=== PATIENT | female | born 1995 | race Hispanic/Latino ===

== ENCOUNTER 2018-10-20 19:28 | Emergency (ER) | payer SELFPAY ==
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
== END 2018-10-20 22:27 | disposition home or self-care (01) ==
LOC: ER 19:28
DX: M54.5 Low back pain (principal); V49.40XA Driver injured in collision with unspecified motor vehicles in traffic accident, initial encounter; Z72.0 Tobacco use; Z88.0 Allergy status to penicillin
CPT/HCPCS: 72100; 99283

== ENCOUNTER 2019-05-02 10:57 | Emergency (ER) | payer SELFPAY ==
[2019-05-02 12:11] LABS: Absolute Lymphocytes (CBC) 1.6 K/uL (0.7-4.9); Absolute Monocytes 0.4 K/uL (0.1-1.3); Absolute Neutrophil 7.9 K/uL (1.8-8.0); Basophils % 0.6 % (0-1.3); Eosinophils % 0.8 % (0-4.4); Hematocrit 41.3 % (36.0-45.0); Lymphocytes % 15.8 % (15.3-44.8); MPV 8.7 fL (7.6-11.3); Monocytes % 4.2 % (3.3-12.3); RBC Red Blood Cell Count 4.66 M/uL (3.86-4.86)
[2019-05-02 12:26] LABS: Urine Blood 3+ (NEG); Urine Glucose NEGATIVE (NEG); Urine Protein 2+ (NEG); Urine Specific Gravity 1.015 (1.005-1.030); Urine pH 7.5 (5.0-7.0)
[2019-05-02 12:36] LABS: BUN Blood Urea Nitrogen 5 mg/dL (7-18); Bicarbonate 22 mmol/L (21-32); Glucose Level 82 mg/dL (74-106); HCG, Quantitative 46485 mIU/mL (1-3); Potassium 4.1 mmol/L (3.5-5.1); Sodium Level 136 mmol/L (136-145)
--- NOTE | 2019-05-02 13:19 | RAD REPORT ---
EXAM DESCRIPTION: US - Transvaginal OB - 05/02/2019 12:49 pm CLINICAL HISTORY: with vaginal bleeding COMPARISON: None. FINDINGS: The uterus measures 10 x 8 x 9 centimeters. Gestational sac is present within the endomet rium. Within this is pole with a crown rump length 5 centimeters. Cardiac activity 160 beats pe r minute. The gestational sac occupies the uterine fundus and lower uterine segment. The pole i s predominantly within the lower uterine segment. . 3 centimeter heterogeneous structure is present along the left lateral uterine wall. Ovaries are normal in size and echotexture. Right and left adnexa unremarkable. No significant free fluid IMPRESSION: Single live intrauterine with an estimated gestational age 11 weeks 5 days CHRISTOS 11/16/2019. 3 centimeter heterogeneous structure along the left lateral uterine wall may represent a fibroid or b lood. This could be monitored with a subsequent ultrasound in a few weeks.
--- NOTE | 2019-05-02 13:28 | ER ---
Nurse's Notes [facility] Name: Raeann Mesa Age: 23 yrs Sex: Female : 1995 Arrival Date: 05/02/2019 Time: 11:00 Bed 14 Private MD: out of town, doctor Diagnosis: related conditions, unspecified, first trimester;11 weeks gestation of ;Threatened Presentation: 05/02 11:01 Presenting complaint: Patient states: LMP- 12/20/18; i started vaginal bleeding since hj Tuesday after my transvaginal US from my OB in [place]; today, i noticed a blood clot and the bleeding is abdulkadir heavy, i feel like a gas type pain in my abdomen; denies N/V;. Transition of care: patient was not received from another setting of care. Onset of symptoms was May 02, 2019. Risk Assessment: Do you want to hurt yourself or someone else? Patient reports no desire to harm self or others. Initial Sepsis Screen: Does the patient meet any 2 criteria? No. Patient's initial sepsis screen is negative. Does the patient have a suspected source of infection? No. Patient's initial sepsis screen is negative. Care prior to arrival: None. 11:01 Method Of Arrival: Ambulatory 11:01 Acuity: SHANNON 3 RECRUITMENT COORDINATOR: 11:04 LMP 12/20/2018 11:52 1, LMP 12/22/2018, Verified, EDC 09/28/2019, Gestational age from LMP: snw 18 weeks 5 days Historical: - Allergies: 11:03 PENICILLINS; hj - PMHx: 11:03 None; hj - PSHx: 11:03 None; hj - Immunization history:: Adult Immunizations unknown. - Social history:: Smoking status: Patient/guardian denies using tobacco. - Ebola Screening: : No symptoms or risks identified at this time. Screenin:30 Abuse screen: Denies threats or abuse. Denies injuries from another. Nutritional ph screening: No deficits noted. Tuberculosis screening: No symptoms or risk factors identified. Fall Risk None identified. Assessment: 11:30 General: Appears in no apparent distress. comfortable, well groomed, Behavior is calm, ph cooperative, appropriate for age. Pain: Complains of pain in suprapubic area. Neuro: Level of Consciousness is awake, alert, obeys commands, Oriented to person, place, time, situation. Cardiovascular: Capillary refill < 3 seconds in bilateral Patient's skin is warm and dry. Respiratory: Airway is patent Respiratory pattern is regular, symmetrical. GI: Abdomen is round non-distended. : Reports pain in suprapubic area vaginal bleeding that is with clots, moderate flow. Derm: Skin is intact, is healthy with good turgor, Skin is pink, warm \T\ dry. Musculoskeletal: Circulation, motion, and sensation intact. Range of motion: intact in all extremities. 12:30 Reassessment: Pt taken to US via wheelchair. ph Vital Signs: 11:04 BP 129 / 83; Pulse 83; Resp 16; Temp 98.8(O); Pulse Ox 98% on R/A; Weight 79.83 kg; hj Height 5 ft. 6 in. (167.64 cm); Pain 0/10; 12:00 BP 118 / 76; Pulse 85; Resp 16; Pulse Ox 99% on R/A; ph 13:00 BP 122 / 81; Pulse 86; Resp 18; Temp 97.2(TE); Pulse Ox 100% on R/A; ph 11:04 Body Mass Index 28.41 (79.83 kg, 167.64 cm) ED Course: 11:00 Patient arrived in ED. mr 11:00 out of town, doctor is Private Physician. mr 11:03 Triage completed. hj 11:04 Arm band placed on right wrist. hj 11:08 Jackelin Caal, DANIEL is Primary Nurse. ph 11:09 Tory Hernandez FNP-C is [facility]. snw 11:09 Chris Schultz MD is Attending Physician. snw 11:30 Patient has correct armband on for positive identification. Placed in gown. Bed in low ph position. Call light in reach. Side rails up X 1. Pulse ox on. NIBP on. Door closed. Noise minimized. Warm blanket given. Pillow given. 11:32 Initial lab(s) drawn, by me, sent to lab. Inserted saline lock: 20 gauge in left dh3 antecubital area, using aseptic technique. Blood collected. 11:40 Urine collected: clean catch specimen, blood tinged. [facility] 11:44 Radiology exam delayed due to lab results not completed at this time. aa4 12:50 Transvaginal OB In Process Unspecified. EDMS 13:35 Repeat lab(s) drawn. by me, sent to lab. Second ABO/Rh verification bloodsample. jp3 13:48 IV discontinued, intact, bleeding controlled, No redness/swelling at site. Pressure aj dressing applied. 13:48 No provider procedures requiring assistance completed. ph Administered Medications: No medications were administered Outcome: 13:27 Discharge ordered by . naga 13:48 Discharged to home ambulatory. aj 13:48 Condition: good 13:48 Discharge instructions given to patient, family, Instructed on discharge instructions, follow up and referral plans. medication usage, Demonstrated understanding of instructions, follow-up care, medications, Prescriptions given X 1. 13:48 Patient left the ED. [place] Signatures: Dispatcher [employer] EDQuita Prasad, RN RN Tory Ocampo, SALES SERVICE SUPERVISOR-C SALES SERVICE SUPERVISOR-Csnw Kami ParedesQuita harrell aa4 aJckelin Caal, RN RN Jose Luis Jimenez, RN RN Marie Melendrez 3 Tree Andrea jp3 Corrections: (The following items were deleted from the chart) 11:06 11:01 Presenting complaint: Patient states: LMP- 12/20/18; i started vaginal bleeding hj since Tuesday after my US; today, i noticed a blood clot, i feel like a gas type pain in my abdomen; denies N/V; hj 11:11 11:01 Presenting complaint: Patient states: LMP- 12/20/18; i started vaginal bleeding hj since Tuesday after my US; today, i noticed a blood clot and the bleeding is abdulkadir heavy, i feel like a gas type pain in my abdomen; denies N/V; hj
--- NOTE | 2019-05-02 13:29 | EDPHYS ---
Physician Documentation [facility] Name: Raeann Mesa Age: 23 yrs Sex: Female : 1995 Arrival Date: 05/02/2019 Time: 11:00 Bed 14 Private MD: out of town, doctor ED Physician Chris Schultz HPI: 05/02 11:52 This 23 yrs old Female presents to ER via Ambulatory with complaints of snw Vaginal Bleeding, + Preg <12wks. 11:52 The patient presents with vaginal bleeding that is spotting, with clots. Onset: The snw symptoms/episode began/occurred suddenly, 3 day(s) ago, and became worse this morning, and became persistent. Modifying factors: The symptoms are alleviated by nothing. Associated signs and symptoms: The patient has no apparent associated signs or symptoms. Severity of symptoms: At their worst the symptoms were mild. The patient has not experienced similar symptoms in the past. The patient has been recently seen by a physician: an shot man specialist, at a clinic, 3 day(s) ago, pt has appt with Efficiency Manager, had transvag US, all looked well, left office and had vaginal bleeding, returned to office and had repeat transvag US. Bleeding continued, pt on bedrest, bleeding slowed to spotting. Today with large blood clot post waking. , 11 wks. 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 - Social history:: Smoking status: Patient/guardian denies using tobacco. - Ebola Screening: : No symptoms or risks identified at this time. ROS: 11:39 Constitutional: Negative for fever, chills, and weight loss, Eyes: Negative for injury, snw pain, redness, and discharge, ENT: Negative for injury, pain, and discharge, Neck: Negative for injury, pain, and swelling, Cardiovascular: Negative for chest pain, palpitations, and edema, Respiratory: Negative for shortness of breath, cough, wheezing, and pleuritic chest pain, Abdomen/GI: Negative for abdominal pain, nausea, vomiting, diarrhea, and constipation, Back: Negative for injury and pain, MS/Extremity: Negative for injury and deformity, Skin: Negative for injury, rash, and discoloration, Neuro: Negative for headache, weakness, numbness, tingling, and seizure. 11:39 : Positive for small amounts, vaginal bleeding. Exam: 11:39 Constitutional: This is a well developed, well nourished patient who is awake, alert, snw and in no acute distress. Head/Face: Normocephalic, atraumatic. Eyes: Pupils equal round and reactive to light, extra-ocular motions intact. Lids and lashes normal. Conjunctiva and sclera are non-icteric and not injected. Cornea within normal limits. Periorbital areas with no swelling, redness, or edema. ENT: Nares patent. No nasal discharge, no septal abnormalities noted. Tympanic membranes are normal and external auditory canals are clear. Oropharynx with no redness, swelling, or masses, exudates, or evidence of obstruction, uvula midline. Mucous membranes moist. Neck: Trachea midline, no thyromegaly or masses palpated, and no cervical lymphadenopathy. Supple, full range of motion without nuchal rigidity, or vertebral point tenderness. No Meningismus. Chest/axilla: Normal chest wall appearance and motion. Nontender with no deformity. No lesions are appreciated. Cardiovascular: Regular rate and rhythm with a normal S1 and S2. No gallops, murmurs, or rubs. Normal PMI, no JVD. No pulse deficits. Respiratory: Lungs have equal breath sounds bilaterally, clear to auscultation and percussion. No rales, rhonchi or wheezes noted. No increased work of breathing, no retractions or nasal flaring. Abdomen/GI: Soft, non-tender, with normal bowel sounds. No distension or tympany. No guarding or rebound. No evidence of tenderness throughout. Back: No spinal tenderness. No costovertebral tenderness. Full range of motion. Skin: Warm, dry with normal turgor. Normal color with no rashes, no lesions, and no evidence of cellulitis. MS/ Extremity: Pulses equal, no cyanosis. Neurovascular intact. Full, normal range of motion. Neuro: Awake and alert, GCS 15, oriented to person, place, time, and situation. Cranial nerves II-XII grossly intact. Motor strength 5/5 in all extremities. Sensory grossly intact. Cerebellar exam normal. Normal gait. Vital Signs: 11:04 BP 129 / 83; Pulse 83; Resp 16; Temp 98.8(O); Pulse Ox 98% on R/A; Weight 79.83 kg; hj Height 5 ft. 6 in. (167.64 cm); Pain 0/10; 12:00 BP 118 / 76; Pulse 85; Resp 16; Pulse Ox 99% on R/A; ph 13:00 BP 122 / 81; Pulse 86; Resp 18; Temp 97.2(TE); Pulse Ox 100% on R/A; ph 11:04 Body Mass Index 28.41 (79.83 kg, 167.64 cm) hj MDM: 11:09 Patient medically screened. snw 13:40 Data reviewed: vital signs, nurses notes. Data interpreted: Pulse oximetry: on room air snw is 98 %. Interpretation: normal. Counseling: I had a detailed discussion with the patient and/or guardian regarding: the historical points, exam findings, and any diagnostic results supporting the discharge/admit diagnosis, lab results, radiology results, the need for outpatient follow up, to return to the emergency department if symptoms worsen or persist or if there are any questions or concerns that arise at home. Special discussion: Based on the history and exam findings, there is no indication for further emergent testing or inpatient evaluation. I discussed with the patient/guardian the need to see the OB Gyne specialist for further evaluation of the symptoms. 05/02 11:10 Order name: Quantitative Hcg; Complete Time: 12:41 snw 05/02 11:10 Order name: Abo/rh Typing; Complete Time: 12:32 snw 05/02 11:10 Order name: Basic Metabolic Panel; Complete Time: 12:41 snw 05/02 11:10 Order name: CBC with Diff; Complete Time: 12:26 snw 05/02 11:56 Order name: Urine Culture dh3 05/02 12:02 Order name: Urine Dipstick--Ancillary (enter results); Complete Time: 12:30 bd 05/02 11:06 Order name: Urine Test (obtain specimen); Complete Time: 11:58 05/02 11:10 Order name: IV Saline Lock; Complete Time: 11:33 snw 05/02 11:10 Order name: Labs collected and sent; Complete Time: 11:33 snw 05/02 11:10 Order name: NPO; Complete Time: 11:33 snw 05/02 12:02 Order name: Urine --Ancillary (enter results); Complete Time: 12:30 bd 05/02 12:50 Order name: Transvaginal OB; Complete Time: 13:24 EDMN 05/02 11:10 Order name: Urine Dipstick-Ancillary (obtain specimen); Complete Time: 11:58 snw Administered Medications: No medications were administered Disposition: 15:51 Co-signature as Attending Physician, Chris Schultz MD. rn Disposition: 05/02/19 13:27 Discharged to Home. Impression: related conditions, unspecified, first trimester, 11 weeks gestation of , Threatened . - Condition is Stable. - Discharge Instructions: Threatened Miscarriage, Vaginal Bleeding During , First Trimester, First Trimester of , Pelvic Rest. - Prescriptions for Vitamin 27- 0.8 mg Oral Tablet - take 1 tablet by ORAL route once daily; 60 tablet. - Medication Reconciliation Form, Thank You Letter, Antibiotic Education, Prescription Opioid Use form. - Follow up: Private Physician; When: 5 - 6 days; Reason: Recheck today's complaints, Continuance of care, Re-evaluation by your physician. Follow up: Emergency Department; When: As needed; Reason: Worsening of condition. Signatures: Dispatcher [employer] [place] Pierre RN RN aj Therrien, Shelly, BUSINESS OBJECTS ARCHITECT-C BUSINESS OBJECTS ARCHITECT-Csnw Chris Schultz MD MD rn Hall, Patricia, RN RN ph Joaquin, Henry RN DANIEL wei Corrections: (The following items were deleted from the chart) 11:58 11:06 Urine Dipstick-Ancillary ordered. [facility] 12:50 11:28 OB Limited+US.RAD.BRZ ordered. [facility] 13:48 13:27 05/02/2019 13:27 Discharged to Home. Impression: related conditions, aj unspecified, first trimester; 11 weeks gestation of ; Threatened . Condition is Stable. Forms are Medication Reconciliation Form, Thank You Letter, Antibiotic Education, Prescription Opioid Use. Follow up: Private Physician; When: 5 - 6 days; Reason: Recheck today's complaints, Continuance of care, Re-evaluation by your physician. Follow up: Emergency Department; When: As needed; Reason: Worsening of condition. naga
== END 2019-05-02 13:48 | disposition home or self-care (01) ==
LOC: ER 10:57
DX: O20.0 Threatened abortion (principal); Z3A.18 18 weeks gestation of pregnancy; Z88.0 Allergy status to penicillin
CPT/HCPCS: 36415; 76817; 80048; 81003; 81025; 84702; 85025; 86900; 86901; 87086; 87088; 99284

== ENCOUNTER 2019-06-29 16:28 | Inpatient (IN) | payer SELFPAY ==
[2019-06-29 17:15] LABS: Urine Blood 3+ (NEG); Urine Glucose NEGATIVE (NEG); Urine Protein 3+ (NEG); Urine Specific Gravity 1.015 (1.005-1.030)
[2019-06-29 17:34] LABS: Absolute Lymphocytes (CBC) 1.9 K/uL (0.7-4.9); Basophils % 0.3 % (0-1.3); Hematocrit 38.6 % (36.0-45.0); Lymphocytes % 16.6 % (15.3-44.8); MPV 8.4 fL (7.6-11.3)
[2019-06-29 18:07] LABS: BUN Blood Urea Nitrogen 8 mg/dL (7-18); Bicarbonate 23 mmol/L (21-32); Glucose Level 96 mg/dL (74-106); HCG, Quantitative 4550 mIU/mL (1-3); Potassium 3.6 mmol/L (3.5-5.1); Sodium Level 140 mmol/L (136-145)
--- NOTE | 2019-06-29 18:28 | RAD REPORT ---
EXAM DESCRIPTION: US - OB Limited - 06/29/2019 5:51 pm CLINICAL HISTORY: , amniotic fluid leak COMPARISON: None. FINDINGS: A single cephalic presenting gestation is identified. The 4 chamber heart view has a antonette l appearance. Heart rate normal. The intracranial contents and spine are grossly normal. A left -sided stomach bubble is seen with normal appearing bladder and kidneys. The 3 vessel cord, insertion site and anterior abdominal wall have normal appearance. No abnormalities are identifiable. measurements are as follows: BPD:4.80 Centimeters 20 weeks 4 days HC:17.92 Centimeters 20 weeks 3 days AC:16.02 Centimeters 21 weeks 1 day HL:3.19 Centimeters 20 weeks 5 days FL:3.22 Centimeters 20 weeks 0 days The estimated gestational age (EGA) is 20 weeks 4 days with an CHRISTOS of 11/12/2019. ratios are n ormal or within acceptable limits. The placenta is grade I, posterior in location. No low-lying or pl acenta previa. SIDNEY is 1.80 cm with all pockets less than 1 centimeter in size. Normal range for this age is 8.4-22.7 cm. Limited endovaginal sonography shows a long and closed cervical canal. No fluid, hemorrhage or other abnormality within the canal. No maternal adnexal abnormality. IMPRESSION: 1. Single cephalic gestation with an EGA of 20 weeks 4 days and an CHRISTOS of the 11/12/2019 . 2. No abnormalities are identifiable. ratios are normal or within acceptable limits. 3. Grade I, posterior placenta with no low-lying or placenta previa. 4. Little to no amniotic fluid is present. SIDNEY is 1.8 cm.
--- NOTE | 2019-06-29 18:29 | ER ---
Nurse's Notes [facility] Name: Raeann Mesa Age: 23 yrs Sex: Female : 1995 Arrival Date: 06/29/2019 Time: 16:29 Bed 30 Private MD: Diagnosis: Threatened Presentation: 06/29 16:47 Presenting complaint: Low back pain followed by clear fluid leaking from vagina that hb started at 1620. Pt reports she is 19 weeks , CHRISTOS 11/20/19. Transition of care: patient was not received from another setting of care. Onset of symptoms was June 29, 2019. Risk Assessment: Do you want to hurt yourself or someone else? Patient reports no desire to harm self or others. Initial Sepsis Screen: Does the patient meet any 2 criteria? No. Patient's initial sepsis screen is negative. Does the patient have a suspected source of infection? No. Patient's initial sepsis screen is negative. Care prior to arrival: None. 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 - Social history:: Smoking status: Patient/guardian denies using tobacco. - Ebola Screening: : No symptoms or risks identified at this time. Screenin:12 Abuse screen: Denies threats or abuse. Nutritional screening: No deficits noted. la1 Tuberculosis screening: No symptoms or risk factors identified. Fall Risk None identified. 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 General: Appears la1 in no apparent distress. Behavior is calm, cooperative. Pain: Denies pain. Neuro: Level of Consciousness is awake, alert, Oriented to person, place, time, situation. Cardiovascular: Capillary refill < 3 seconds Patient's skin is warm and dry. Respiratory: Airway is patent Respiratory effort is even, unlabored, Respiratory pattern is regular, symmetrical. GI: Abdomen is round non-distended. : Denies pain vaginal bleeding. 18:23 Reassessment: Patient appears in no apparent distress at this time. No changes from la1 previously documented assessment. Patient and/or family updated on plan of care and expected duration. Pain level reassessed. Patient is alert, oriented x 3, equal unlabored respirations, skin warm/dry/pink. 19:36 Reassessment: Patient appears in no apparent distress at this time. No changes from la1 previously documented assessment. Patient and/or family updated on plan of care and expected duration. Pain level reassessed. Patient is alert, oriented x 3, equal unlabored respirations, skin warm/dry/pink. Vital Signs: 16:49 BP 128 / 83; Pulse 89; Resp 16; Temp 98.5; Pulse Ox 100% on R/A; Weight 81.65 kg; hb Height 5 ft. 6 in. (167.64 cm); Pain 7/10; 18:36 BP 119 / 66; Pulse 67; Resp 16; Temp 98.6(O); Pulse Ox 98% on R/A; la1 19:36 BP 107 / 65; Pulse 86; Resp 16; Pulse Ox 98% on R/A; la1 16:49 Body Mass Index 29.05 (81.65 kg, 167.64 cm) hb ED Course: 16:29 Patient arrived in ED. as 16:49 Triage completed. hb 16:49 Arm band placed on. hb 16:51 Jose D Marquez RN is Primary Nurse. la1 16:57 Kaushik Holder MD is Attending Physician. kdr 17:12 Bed in low position. Call light in reach. Side rails up X 1. la1 17:51 OB Limited In Process Unspecified. EDMS 18:27 Geeta Vinson MD is Hospitalizing Provider. kdr 18:35 TRANSVAG OB CERVIX ASSESSMENT In Process Unspecified. EDMS 18:35 No provider procedures requiring assistance completed. Inserted saline lock: 20 gauge la1 in left antecubital area, using aseptic technique. Blood collected. 19:59 IV discontinued, intact, bleeding controlled, No redness/swelling at site. Pressure la1 dressing applied. Administered Medications: No medications were administered Point of Care Testing: Urine : 18:36 hCG Reading: Positive; Control Reading: Positive; la1 Outcome: 18:28 Decision to Hospitalize by Provider. kdr 19:59 Admitted to L \T\ D, accompanied by nurse, via wheelchair, room 274, with chart. la1 19:59 Condition: stable 19:59 Instructed on the need for admit. 20:00 Patient left the ED. la1 Signatures: Dispatcher [employer] EDMS Kaushik Holder MD MD kdr Bonny Polk Lee RN RN la1 Debbie Garcia RN RN hb
--- NOTE | 2019-06-29 18:29 | EDPHYS ---
Physician Documentation [facility] [place], [place] Name: Raeann Mesa Age: 23 yrs Sex: Female : 1995 Arrival Date: 06/29/2019 Time: 16:29 Bed 30 Private MD: ED Physician Kaushik Holder HPI: 06/29 18:34 This 23 yrs old Female presents to ER via Ambulatory with complaints of OB kdr Problem (< 20 weeks). 18:34 The patient presents to the emergency department with rupture of membranes, that kdr occurred just prior to arrival, 16:00. The estimated gestational age is 20 weeks. course: care: at a clinic, private OB physician, Dr. Egan in [place]. Previous pregnancies: the patient has never been . Associated signs and symptoms: The patient has no apparent associated signs or symptoms. The patient has not experienced similar symptoms in the past. The patient has not recently seen a physician. 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 - Social history:: Smoking status: Patient/guardian denies using tobacco. - Ebola Screening: : No symptoms or risks identified at this time. ROS: 18:34 Constitutional: Negative for fever, chills, and weight loss, Eyes: Negative for injury, kdr pain, redness, and discharge, ENT: Negative for injury, pain, and discharge, Neck: Negative for injury, pain, and swelling, Cardiovascular: Negative for chest pain, palpitations, and edema, Respiratory: Negative for shortness of breath, cough, wheezing, and pleuritic chest pain, Abdomen/GI: Negative for abdominal pain, nausea, vomiting, diarrhea, and constipation, Back: Negative for injury and pain, MS/Extremity: Negative for injury and deformity, Skin: Negative for injury, rash, and discoloration, Neuro: Negative for headache, weakness, numbness, tingling, and seizure activity. 18:34 : Positive for vaginal discharge. Exam: 18:34 Constitutional: This is a well developed, well nourished patient who is awake, alert, kdr and in no acute distress. Head/Face: Normocephalic, atraumatic. Eyes: Pupils equal round and reactive to light, extra-ocular motions intact. Lids and lashes normal. Conjunctiva and sclera are non-icteric and not injected. Cornea within normal limits. Periorbital areas with no swelling, redness, or edema. Neck: Trachea midline, no thyromegaly or masses palpated, and no cervical lymphadenopathy. Supple, full range of motion without nuchal rigidity, or vertebral point tenderness. No Meningismus. Chest/axilla: Normal chest wall appearance and motion. Nontender with no deformity. No lesions are appreciated. Cardiovascular: Regular rate and rhythm with a normal S1 and S2. No gallops, murmurs, or rubs. Normal PMI, no JVD. No pulse deficits. Respiratory: Lungs have equal breath sounds bilaterally, clear to auscultation and percussion. No rales, rhonchi or wheezes noted. No increased work of breathing, no retractions or nasal flaring. Abdomen/GI: Soft, non-tender, with normal bowel sounds. No distension or tympany. No guarding or rebound. No evidence of tenderness throughout. Back: No spinal tenderness. No costovertebral tenderness. Full range of motion. Skin: Warm, dry with normal turgor. Normal color with no rashes, no lesions, and no evidence of cellulitis. MS/ Extremity: Pulses equal, no cyanosis. Neurovascular intact. Full, normal range of motion. Neuro: Awake and alert, GCS 15, oriented to person, place, time, and situation. Cranial nerves II-XII grossly intact. Motor strength 5/5 in all extremities. Sensory grossly intact. Cerebellar exam normal. Normal gait. Psych: Awake, alert, with orientation to person, place and time. Behavior, mood, and affect are within normal limits. Vital Signs: 16:49 BP 128 / 83; Pulse 89; Resp 16; Temp 98.5; Pulse Ox 100% on R/A; Weight 81.65 kg; hb Height 5 ft. 6 in. (167.64 cm); Pain 7/10; 18:36 BP 119 / 66; Pulse 67; Resp 16; Temp 98.6(O); Pulse Ox 98% on R/A; la1 19:36 BP 107 / 65; Pulse 86; Resp 16; Pulse Ox 98% on R/A; la1 16:49 Body Mass Index 29.05 (81.65 kg, 167.64 cm) hb MDM: 18:28 Patient medically screened. kdr 18:34 Data reviewed: vital signs, nurses notes, lab test result(s), radiologic studies. kdr Counseling: I had a detailed discussion with the patient and/or guardian regarding: the historical points, exam findings, and any diagnostic results supporting the discharge/admit diagnosis, lab results, radiology results, the need for further work-up and treatment in the hospital. Physician consultation: Geeta Vinson MD was contacted at 18:20, and will see patient in ED. Admission orders: after a detailed discussion of the patient's condition and case, the admit orders are written by me. 06/29 16:58 Order name: Quantitative Hcg; Complete Time: 18:13 kdr 06/29 16:58 Order name: Abo/rh Typing; Complete Time: 18:13 kdr 06/29 16:58 Order name: Basic Metabolic Panel; Complete Time: 18:13 kdr 06/29 16:58 Order name: CBC with Diff; Complete Time: 18:13 kdr 06/29 17:05 Order name: Urine Dipstick--Ancillary (enter results); Complete Time: 18:13 eb 06/29 17:05 Order name: Urine --Ancillary (enter results); Complete Time: 18:13 eb 06/29 17:36 Order name: OB Limited EDND 06/29 17:57 Order name: TRANSVAG OB CERVIX ASSESSMENT EDND 06/29 18:35 Order name: NPO EDND 06/29 18:36 Order name: Basic Metabolic Panel EDMS 06/29 18:36 Order name: Basic Metabolic Panel EDMS 06/29 18:36 Order name: CBC with Automated Diff EDMS 06/29 18:36 Order name: CBC with Automated Diff EDMS 06/29 16:58 Order name: IV Saline Lock; Complete Time: 16:58 kdr 06/29 16:58 Order name: Labs collected and sent; Complete Time: 17:12 kdr 06/29 16:58 Order name: NPO; Complete Time: 17:12 kdr 06/29 16:58 Order name: Urine Dipstick-Ancillary (obtain specimen); Complete Time: 17:00 kdr Administered Medications: No medications were administered Point of Care Testing: Urine : 18:36 hCG Reading: Positive; Control Reading: Positive; la1 Disposition: 06/29/19 18:28 Hospitalization ordered by Geeta Vinson for Observation. Preliminary diagnosis is Threatened . - Bed requested for [facility]. - Status is Observation. la1 - Condition is Fair. - Problem is new. - Symptoms have improved. UTI on Admission? No Signatures: Dispatcher [employer] EDND Shana Etienne RN RN dw Kaushik Holder MD MD kdr Jose D Marquez RN RN la1 Debbie Garcia RN RN Corrections: (The following items were deleted from the chart) 17:35 16:58 Transvaginal Study (Probe)+US.RAD.BRZ ordered. [facility] EDND 18:52 18:28 Hospitalization Ordered by Geeta Vinson MD for Observation. Preliminary diagnosis kdr is Threatened . Bed requested for Telemetry/MedSurg (observation). Status is Observation. Condition is Fair. Problem is new. Symptoms have improved. UTI on Admission? No. kdr 18:56 18:52 06/29/2019 18:28 Hospitalization Ordered by Geeta Vinson MD for Observation. dw Preliminary diagnosis is Threatened . Bed requested for [facility]. Status is Observation. Condition is Fair. Problem is new. Symptoms have improved. UTI on Admission? No. kdr 20:00 18:56 06/29/2019 18:28 Hospitalization Ordered by Geeta Vinson MD for Observation. la1 Preliminary diagnosis is Threatened . Bed requested for [facility]. Status is Observation. Condition is Fair. Problem is new. Symptoms have improved. UTI on Admission? No. dw
[2019-06-29] MEDS ORDERED: ONDANSETRON 4 MG/2 ML VIAL IV PRN (18:32)
[2019-06-29] MEDS ORDERED: ACETAMINOPHEN 500 MG TAB PO PRN (18:32)
[2019-06-29] MEDS ORDERED: D5 0.45 NS 1,000 ML IV SCH (19:00)
--- NOTE | 2019-06-29 19:27 | RAD REPORT ---
EXAM DESCRIPTION: US - TRANSVAG OB CERVIX ASSESSMENT - 06/29/2019 6:34 pm FINDINGS: Limited endovaginal sonography was performed. Cervical canal is 5.7 cm in length with clos ed internal os. No hematoma, fluid, mass or other finding in the endometrial cavity.
== END 2019-06-29 21:35 | disposition home or self-care (01) | DRG 833 ==
LOC: ER 16:28 → ERHOLD 18:33 → 2ND-WC 19:43
PROVIDERS: ADMIT Student in an Organized Health Care Education/Training Program; ATTEND Student in an Organized Health Care Education/Training Program
DX: O20.0 Threatened abortion (principal); Z3A.20 20 weeks gestation of pregnancy
CPT/HCPCS: 36415; 76815; 76817; 80048; 81003; 81025; 83986; 84702; 85025; 86900; 86901; 99218; 99285

== ENCOUNTER 2019-11-02 00:32 | Emergency (ER) | payer BC, SELFPAY ==
--- OUTSIDE RECORDS SUMMARY | 2019-11-02 00:35 | XMS REPORT ---
:1995 [facility] Address [address] [place] [address] Care Team Providers Name Role Phone Unavailable Unavailable Unavailable Payers Payer Name Policy Type Policy Number Effective Date Expiration Date Problems This patient has no known problems. Allergies, Adverse Reactions, Alerts Allergy Name Allergy Status Severity Reaction(s) Onset Inactive Treating Comments Type Date Date Clinician Penicillins DA Active 2019-07 00:00:0 0 No Known DA Active U 2019-06 00:00:0 0 Penicillins DA Active 2019-06 00:00:0 0 Medications This patient has no known medications. Results Test Description Test Time Test Comments Text Results Atomic Results Result Comments [facility] 2019-08-24 RUN DATE: THIRD 07:12:00 08/27/19 [facility] PAGE 1 RUN TIME: 1434 TRIMESTER Specimen Inquiry RUN USER: INTERFACE PATIENT: JOSE RICARDO LOC: ALYSIA U #: [id number] AGE/SX: ROOM: [facility] REREG DR: Alex Carter III, MD : [birth year] BED: A DIS: 08/24/19 STATUS: DIS IN TLOC: SPEC #: [id number] RECD: 08/21/19 STATUS: VALDEMAR MATTSON # : [id number] ROBE: 08/21/19- SUBM DR: Alex Carter III, MD ENTERED: 08/22/19 SP TYPE: PLACIII OTHR DR: ORDERED: LEVEL V SURGICA CODES: [id number] - PLACENTA, NOS PROCEDURES: LEVEL V SURGICA (Incomplete) TISSUES: PLACENTA, NOS - PLACENTA CLINICAL HISTORY 23 year old, 27 weeks, section, PPROM (wpd) FINAL DIAGNOSIS Placenta, section: - placenta with early third trimester morphology (280 gm), mean placental weight at 27 weeks - 248 gm - pigment-laden macrophages present in the membranes - trivascular umbilical cord and membranes - free of inflammation - 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 The following attributes are observed: Cord insertion: 3 cm from margin Cord length: 15 cm Number of vessels: 3 Cord color: Ye Other cord findings: Slightly edematous surface findings: Steel blue, wrinkled, glistening with focal subchorionic fibrin deposition and subamniotic clotted blood Vasculature: Displays unremarkable blood vasculature Membranes rupture site: Marginal Membrane color: Ye Other membrane findings: Thickened CONTINUED ON NEXT PAGE RUN DATE: 08/27/19 [facility] PAGE 2 RUN TIME: 1434 Specimen Inquiry RUN USER: INTERFACE SPEC #: [id number] PATIENT: JOSE RICARDO #[id number] (Continued) -- GROSS DESCRIPTION (Continued) The trimmed placental weight: 280 gm Disk measurement: 18 x 14 x 2.5 cm in greatest dimension Accessory lobes: None Maternal surface: Fragmented with well- formed cotyledons Parenchyma: Red, beefy, and spongy with peripheral fibrosis Parenchyma lesions: None Cassettes: A1 through A4 jm/wpd @ 1115 MICROSCOPIC DESCRIPTION The placenta is composed of medium-sized cellular villi. Focally, the placental parenchyma is infarcted in the subchorionic region which is to an area of decidual necrosis. The trivascular umbilical cord and membranes are free of acute inflammation. Pigment-laden macrophages are present in the membranes. michael/tyler dt: 08/24/19 / michael/juventino 08/27/19 Signed Shani Payton 08/24/19 0712 END OF REPORT CBC W/AUTO DIFF 2019-08-22 07:34:00 Test Item Value Reference Range Comments WHITE BLOOD CELL (test code=WBC) 15.3 K/mm3 6.6-12.1 RED BLOOD CELL (test code=RBC) 4.14 M/mm3 3.45-5.01 HEMOGLOBIN (test code=HGB) 12.4 g/dL 10.7-13.9 HEMATOCRIT (test code=HCT) 36.4 % 32.1-42.1 MEAN CELL VOLUME (test code=MCV) 88 fL 84.1-94.8 MEAN CELL HGB (test code=MCH) 30.0 pg 27-35 MEAN CELL HGB CONCETRATION (test code=MCHC) 34.1 gm/dL 32.2-34.1 RED CELL DISTRIBUTION WIDTH (test code=RDW) 12.9 % 12.4-16.5 PLATELET COUNT (test code=PLT) 212 K/mm3 133-385 IMMATURE PLATELET FRACTION (test code=IPF) 0.0 % 0.0-10.8 MEAN PLATELET VOLUME (test code=MPV) 9.9 fl 9.1-12.7 NEUTROPHIL % (test code=NT%) 71.4 % 56.5-79.4 LYMPHOCYTE % (test code=LY%) 19.3 % 14.3-34.3 MONOCYTE % (test code=MO%) 7.4 % 5.1-10.4 EOSINOPHIL % (test code=EO%) 0.6 % 0.1-3.0 BASOPHIL % (test code=BA%) 0.5 % 0.1-1.0 NEUTROPHIL # (test code=NT#) 10.9 K/mm3 LYMPHOCYTE # (test code=LY#) 3.0 K/mm3 MONOCYTE # (test code=MO#) 1.1 K/mm3 EOSINOPHIL # (test code=EO#) 0.09 K/mm3 BASOPHIL # (test code=BA#) 0.1 K/mm3 RBC MORPHOLOGY REQUIRED (test code=RBCM) NORMAL NORMAL PLATELET MORPHOLOGY REQUIRED (test code=PLTMR) NORMAL NORMAL C REACTIVE [id number] 11:54:00 Test Item Value Reference Range Comments C REACTIVE PROTEIN (test code=CRP) 1.2 mg/dL 0.6-1.2 CBC W/AUTO [id number] 11:26:00 Test Item Value Reference Range Comments WHITE BLOOD CELL (test code=WBC) 11.0 K/mm3 6.6-12.1 RED BLOOD CELL (test code=RBC) 4.67 M/mm3 3.45-5.01 HEMOGLOBIN (test code=HGB) 13.8 g/dL 10.7-13.9 HEMATOCRIT (test code=HCT) 42.2 % 32.1-42.1 MEAN CELL VOLUME (test code=MCV) 90 fL 84.1-94.8 MEAN CELL HGB (test code=MCH) 29.6 pg 27-35 MEAN CELL HGB CONCETRATION (test code=MCHC) 32.7 gm/dL 32.2-34.1 RED CELL DISTRIBUTION WIDTH (test code=RDW) 13.2 % 12.4-16.5 PLATELET COUNT (test code=PLT) 277 K/mm3 133-385 IMMATURE PLATELET FRACTION (test code=IPF) 0.0 % 0.0-10.8 MEAN PLATELET VOLUME (test code=MPV) 10.1 fl 9.1-12.7 NEUTROPHIL % (test code=NT%) 72.7 % 56.5-79.4 LYMPHOCYTE % (test code=LY%) 18.9 % 14.3-34.3 MONOCYTE % (test code=MO%) 5.2 % 5.1-10.4 EOSINOPHIL % (test code=EO%) 1.4 % 0.1-3.0 BASOPHIL % (test code=BA%) 0.5 % 0.1-1.0 NEUTROPHIL # (test code=NT#) 8.0 K/mm3 LYMPHOCYTE # (test code=LY#) 2.1 K/mm3 MONOCYTE # (test code=MO#) 0.6 K/mm3 EOSINOPHIL # (test code=EO#) 0.15 K/mm3 BASOPHIL # (test code=BA#) 0.1 K/mm3 RBC MORPHOLOGY REQUIRED (test code=RBCM) NORMAL NORMAL PLATELET MORPHOLOGY REQUIRED (test code=PLTMR) NORMAL NORMAL CBC W/AUTO [id number] 07:28:00 Test Item Value Reference Range Comments WHITE BLOOD CELL (test code=WBC) 12.5 K/mm3 6.6-12.1 RED BLOOD CELL (test code=RBC) 4.48 M/mm3 3.45-5.01 HEMOGLOBIN (test code=HGB) 13.5 g/dL 10.7-13.9 HEMATOCRIT (test code=HCT) 39.6 % 32.1-42.1 MEAN CELL VOLUME (test code=MCV) 88 fL 84.1-94.8 MEAN CELL HGB (test code=MCH) 30.1 pg 27-35 MEAN CELL HGB CONCETRATION (test code=MCHC) 34.1 gm/dL 32.2-34.1 RED CELL DISTRIBUTION WIDTH (test code=RDW) 13.0 % 12.4-16.5 PLATELET COUNT (test code=PLT) 270 K/mm3 133-385 IMMATURE PLATELET FRACTION (test code=IPF) 0.0 % 0.0-10.8 MEAN PLATELET VOLUME (test code=MPV) 9.9 fl 9.1-12.7 NEUTROPHIL % (test code=NT%) 69.3 % 56.5-79.4 LYMPHOCYTE % (test code=LY%) 20.8 % 14.3-34.3 MONOCYTE % (test code=MO%) 6.2 % 5.1-10.4 EOSINOPHIL % (test code=EO%) 1.5 % 0.1-3.0 BASOPHIL % (test code=BA%) 0.7 % 0.1-1.0 NEUTROPHIL # (test code=NT#) 8.6 K/mm3 LYMPHOCYTE # (test code=LY#) 2.6 K/mm3 MONOCYTE # (test code=MO#) 0.8 K/mm3 EOSINOPHIL # (test code=EO#) 0.19 K/mm3 BASOPHIL # (test code=BA#) 0.1 K/mm3 RBC MORPHOLOGY REQUIRED (test code=RBCM) NORMAL NORMAL PLATELET MORPHOLOGY REQUIRED (test code=PLTMR) NORMAL NORMAL URINALYSIS [id number] 23:35:00 Test Item Value Reference Range Comments UA COLOR (test code=COLU) STRAW YELLOW UA APPEARANCE (test code=APPU) Slightly-Cloudy CLEAR UA GLUCOSE DIPSTICK (test NEGATIVE NEG code=DGLUU) UA BILIRUBIN DIPSTICK (test NEGATIVE NEG code=BILU) UA KETONE DIPSTICK (test NEGATIVE NEG code=KETU) UA SPECIFIC GRAVITY (test 1.010 1.001-1.035 code=SGU) UA BLOOD DIPSTICK (test code=JUAN) 3+ NEG UA PH DIPSTICK (test code=FARAZ) 7.0 5-9 UA PROTEIN DIPSTICK (test NEGATIVE NEG code=PROU) UA UROBILINIOGEN DIPSTICK (test NEGATIVE mg/dL NEG code=URO) UA NITRITE DIPSTICK (test NEG NEG code=NASRIN) UA LEUKOCYTE ESTERASE DIPSTICK NEG NEG (test code=LEUU) UA WBC (test code=WBCU) 0-2 #/hpf NONE SEEN UA RBC (test code=RBCU) TOO NUMEROUS TO CNT #/hpf NONE SEEN UA EPITHELIAL CELLS (test RARE #/HPF RARE-FEW code=EPIU) UA BACTERIA (test code=BACU) RARE /HPF RARE-FEW URINE SAMPLE: CLEAN [id number] 07:14:00 Test Item Value Reference Range Comments MAGNESIUM (test code=MAG) 5.2 mg/dL 1.8-2.4 RESULTS VERIFIED BY REPEAT ANALYSISRESULTS CALLED TO ROBER.READ BACK & CONFIRMED? YES.BY JOSE 08/01/19 0714. [id number] 21:57:00 Test Item Value Reference Range Comments GLUBED (test code=GLUBED) 133 mg/dL 65-110 AG HEPATITIS B [id number] 14:47:00 Test Item Value Reference Range Comments AG HEPATITIS B SURFACE (test code=HBSAG) NONREACTIVE NONREACTIVE IS CONSENT FORM SIGNED FOR HIV TESTING? YAB HEPATITIS C [id number] 14:47: 00 Test Item Value Reference Range Comments AB HEPATITIS C (test code=HCVAB) NONREACTIVE NONREACTIVE SIGNAL TO CUTOFF (test code=CUTOFF) 0.02 <0.80 IS CONSENT FORM SIGNED FOR HIV TESTING? YAB [id number] 14:47:00 Test Item Value Reference Range Comments AB TREPONEMA (test code=TREPAB) NONREACTIVE NONREACTIVE IS CONSENT FORM SIGNED FOR HIV TESTING? YAB HIV 1 14:47:00 Test Item Value Reference Range Comments AB HIV 1 2 (test NONREACTIVE NONREACTIVE Done by [employer] 4[employer] code=ISU27VP) Gen HIV Ag/Ab Combo Screen IS CONSENT FORM SIGNED FOR HIV TESTING? YAG HEPATITIS B [id number] 14:12: 00 Test Item Value Reference Range Comments AG HEPATITIS B SURFACE (test code=HBSAG) NONREACTIVE NONREACTIVE IS CONSENT FORM SIGNED FOR HIV TESTING? YAB HEPATITIS C [id number] 14:12: 00 Test Item Value Reference Range Comments AB HEPATITIS C (test code=HCVAB) NONREACTIVE SIGNAL TO CUTOFF (test code=CUTOFF) <0.80 IS CONSENT FORM SIGNED FOR HIV TESTING? YAB [id number] 14:12:00 Test Item Value Reference Range Comments AB TREPONEMA (test code=TREPAB) NONREACTIVE NONREACTIVE IS CONSENT FORM SIGNED FOR HIV TESTING? YAB HIV 1 14:12:00 Test Item Value Reference Range Comments AB HIV 1 2 (test code=USS33AZ) NONREACTIVE IS CONSENT FORM SIGNED FOR HIV TESTING? YAG HEPATITIS B [id number] 14:09: 00 Test Item Value Reference Range Comments AG HEPATITIS B SURFACE (test code=HBSAG) NONREACTIVE IS CONSENT FORM SIGNED FOR HIV TESTING? YAB HEPATITIS C [id number] 14:09: 00 Test Item Value Reference Range Comments AB HEPATITIS C (test code=HCVAB) NONREACTIVE SIGNAL TO CUTOFF (test code=CUTOFF) <0.80 IS CONSENT FORM SIGNED FOR HIV TESTING? YAB [id number] 14:09:00 Test Item Value Reference Range Comments AB TREPONEMA (test code=TREPAB) NONREACTIVE NONREACTIVE IS CONSENT FORM SIGNED FOR HIV TESTING? YAB HIV 1 14:09:00 Test Item Value Reference Range Comments AB HIV 1 2 (test code=WHE05KQ) NONREACTIVE IS CONSENT FORM SIGNED FOR HIV TESTING? YC REACTIVE [id number] 13:44:00 Test Item Value Reference Range Comments C REACTIVE PROTEIN (test code=CRP) 1.0 mg/dL 0.6-1.2 CBC W/AUTO [id number] 13:30:00 Test Item Value Reference Range Comments WHITE BLOOD CELL (test code=WBC) 11.6 K/mm3 6.6-12.1 RED BLOOD CELL (test code=RBC) 4.19 M/mm3 3.45-5.01 HEMOGLOBIN (test code=HGB) 12.8 g/dL 10.7-13.9 HEMATOCRIT (test code=HCT) 37.4 % 32.1-42.1 MEAN CELL VOLUME (test code=MCV) 89 fL 84.1-94.8 MEAN CELL HGB (test code=MCH) 30.5 pg 27-35 MEAN CELL HGB CONCETRATION (test code=MCHC) 34.2 gm/dL 32.2-34.1 RED CELL DISTRIBUTION WIDTH (test code=RDW) 13.0 % 12.4-16.5 PLATELET COUNT (test code=PLT) 282 K/mm3 133-385 IMMATURE PLATELET FRACTION (test code=IPF) 0.0 % 0.0-10.8 MEAN PLATELET VOLUME (test code=MPV) 9.9 fl 9.1-12.7 NEUTROPHIL % (test code=NT%) 76.4 % 56.5-79.4 LYMPHOCYTE % (test code=LY%) 15.0 % 14.3-34.3 MONOCYTE % (test code=MO%) 6.1 % 5.1-10.4 EOSINOPHIL % (test code=EO%) 1.0 % 0.1-3.0 BASOPHIL % (test code=BA%) 0.4 % 0.1-1.0 NEUTROPHIL # (test code=NT#) 8.9 K/mm3 LYMPHOCYTE # (test code=LY#) 1.7 K/mm3 MONOCYTE # (test code=MO#) 0.7 K/mm3 EOSINOPHIL # (test code=EO#) 0.12 K/mm3 BASOPHIL # (test code=BA#) 0.1 K/mm3 RBC MORPHOLOGY REQUIRED (test code=RBCM) NORMAL NORMAL PLATELET MORPHOLOGY REQUIRED (test code=PLTMR) NORMAL NORMAL AG HEPATITIS B [id number] 03:40:00 Test Item Value Reference Range Comments AG HEPATITIS B SURFACE (test code=HBSAG) NONREACTIVE NONREACTIVE IS CONSENT FORM SIGNED FOR HIV TESTING? YAB HEPATITIS C [id number] 03:40: 00 Test Item Value Reference Range Comments AB HEPATITIS C (test code=HCVAB) NONREACTIVE NONREACTIVE SIGNAL TO CUTOFF (test code=CUTOFF) 0.05 <0.80 IS CONSENT FORM SIGNED FOR HIV TESTING? YAB [id number] 03:40:00 Test Item Value Reference Range Comments AB TREPONEMA (test code=TREPAB) NONREACTIVE NONREACTIVE IS CONSENT FORM SIGNED FOR HIV TESTING? YAB HIV 1 03:40:00 Test Item Value Reference Range Comments AB HIV 1 2 (test NONREACTIVE NONREACTIVE Done by [employer]her 4th code=XLR06AR) Gen HIV Ag/Ab Combo Screen IS CONSENT FORM SIGNED FOR HIV TESTING? YAG HEPATITIS B [id number] 03:11: 00 Test Item Value Reference Range Comments AG HEPATITIS B SURFACE (test code=HBSAG) NONREACTIVE NONREACTIVE IS CONSENT FORM SIGNED FOR HIV TESTING? YAB HEPATITIS C [id number] 03:11: 00 Test Item Value Reference Range Comments AB HEPATITIS C (test code=HCVAB) NONREACTIVE SIGNAL TO CUTOFF (test code=CUTOFF) <0.80 IS CONSENT FORM SIGNED FOR HIV TESTING? YAB [id number] 03:11:00 Test Item Value Reference Range Comments AB TREPONEMA (test code=TREPAB) NONREACTIVE NONREACTIVE IS CONSENT FORM SIGNED FOR HIV TESTING? YAB HIV 1 03:11:00 Test Item Value Reference Range Comments AB HIV 1 2 (test code=RJE59AO) NONREACTIVE IS CONSENT FORM SIGNED FOR HIV TESTING? YCOMPREHENSIVE METABOLIC [id number] 02:08:00 Test Item Value Reference Range Comments SODIUM (test code=NA) 139 mEq/L 135-145 POTASSIUM (test code=K) 3.9 mEq/L 3.5-5.0 CHLORIDE (test code=CL) 104 mEq/L 100-115 CARBON DIOXIDE (test code=CO2) 24 mEq/L 22-31 ANION GAP (test code=GAP) 15.00 10-20 GLUCOSE (test code=GLU) 91 mg/dL 65-110 BLOOD UREA NITROGEN (test code=BUN) 6 mg/dL 7-18 GLOMERULAR FILTRATION RATE (test code=GFR) 201 ml/min >60 CREATININE (test code=CREAT) 0.4 mg/dL 0.5-1.0 TOTAL PROTEIN (test code=PROT) 6.9 gm/dL 6.3-8.2 ALBUMIN (test code=ALB) 3.3 gm/dL 3.4-4.8 CALCIUM (test code=CA) 8.3 mg/dL 8.4-10.2 BILIRUBIN TOTAL (test code=BILT) 0.3 mg/dL 0.2-1.0 SGOT/AST (test code=AST) 28 units/L 15-37 SGPT/ALT (test code=ALT) 45 units/L 12-78 ALKALINE PHOSPHATASE TOTAL (test code=ALKP) 56 units/L 46-116 C REACTIVE [id number] 01:54:00 Test Item Value Reference Range Comments C REACTIVE PROTEIN (test code=CRP) 1.2 mg/dL 0.6-1.2 CBC W/AUTO [id number] 01:45:00 Test Item Value Reference Range Comments WHITE BLOOD CELL (test code=WBC) 16.0 K/mm3 6.6-12.1 RED BLOOD CELL (test code=RBC) 4.34 M/mm3 3.45-5.01 HEMOGLOBIN (test code=HGB) 13.0 g/dL 10.7-13.9 HEMATOCRIT (test code=HCT) 39.6 % 32.1-42.1 MEAN CELL VOLUME (test code=MCV) 91 fL 84.1-94.8 MEAN CELL HGB (test code=MCH) 30.0 pg 27-35 MEAN CELL HGB CONCETRATION (test code=MCHC) 32.8 gm/dL 32.2-34.1 RED CELL DISTRIBUTION WIDTH (test code=RDW) 13.0 % 12.4-16.5 PLATELET COUNT (test code=PLT) 294 K/mm3 133-385 IMMATURE PLATELET FRACTION (test code=IPF) 0.0 % 0.0-10.8 MEAN PLATELET VOLUME (test code=MPV) 10.2 fl 9.1-12.7 NEUTROPHIL % (test code=NT%) 78.8 % 56.5-79.4 LYMPHOCYTE % (test code=LY%) 14.6 % 14.3-34.3 MONOCYTE % (test code=MO%) 4.9 % 5.1-10.4 EOSINOPHIL % (test code=EO%) 0.6 % 0.1-3.0 BASOPHIL % (test code=BA%) 0.5 % 0.1-1.0 NEUTROPHIL # (test code=NT#) 12.6 K/mm3 LYMPHOCYTE # (test code=LY#) 2.3 K/mm3 MONOCYTE # (test code=MO#) 0.8 K/mm3 EOSINOPHIL # (test code=EO#) 0.09 K/mm3 BASOPHIL # (test code=BA#) 0.1 K/mm3 RBC MORPHOLOGY REQUIRED (test code=RBCM) NORMAL NORMAL PLATELET MORPHOLOGY REQUIRED (test code=PLTMR) NORMAL NORMAL - US [facility] [id number] 01:32:00 Patient Name: JOSE GARZA Unit No: [id number] EXAMS: CPT CODE: [id number] [place] [facility] [place] [id number] EXAM: US, US LTD: 06/30/2019, 0031 hours HISTORY: LOF. 19 week . TECHNIQUE: Sonographic evaluation is performed via transabdominal approach using grayscale, color flow and Doppler imaging as appropriate COMPARISON: None. FINDINGS: Single viable intrauterine gestation is identified in vertex presentation. heart rate is 148 bpm. Placenta is posterior, grade one. There is no evidence for placenta previa. Amniotic fluid is decreased. Smallpocket of amniotic fluid seen on the right measuring 1.2 x 1.5 cm. movements noted. BPD:4.8 cm HC: 17.45 cm AC 14.12 cm FL: 3.31 cm Right ovary: 2.7 x 1.7 x 3.4 cm Left ovary: 2.8x 1.5 x 2.0 cm. Both ovaries are unremarkable for echotexture and flow. Cervical length is 2.5 cm IMPRESSION: 1. Single viable intrauterine gestation in vertex presentation. heart rate is 1 48 bpm. 2. Significantly decreased amniotic fluid. A small solitary pocket seenmeasuring 1.2 x 1.5 cm. Findings were discussed with nurse Ms. Jerome on 06/30/2019, 0130 hours SL:MAURI at 0132 Reported and signed by: Manuel Yadav M.D. CC: Alex Carter III, MD Technologist : Debbie Candelario RDMS, RVT Probe: Trnscrbd D/T: 2018 (0132) [email or web address] Orig Print D/T: S: 06/30/2019 ( 0136) [facility] NAME: JOSE GARZA Radiology Department PHYS:Alex Valenzuela III, MD [address] : 1995 AGE: 23 SEX: F [place] [address] LOC: AbebeALVA Bales PHONE #: [phone] EXAM DATE: 06/30/2019 STATUS: ADM IN FAX #: [phone] RAD NO: Page 1 Signed Report Patient Name: JOSE GARZA Unit No: [id number] EXAMS: CPT CODE: [id number] [place] [address] <Continued&gt ; [facility] NAME: JOSE GARZA Radiology Department PHYS: Alex Valenzuela III, MD [address] : 1995 AGE: 23 SEX: F [place] [address] LOC: AbebeALVA [place] PHONE #: [phone] EXAM DATE : 06/30/2019 STATUS: ADM IN FAX #: [phone] RAD NO: Page 2 Signed ReportAMNISURE (ROM) [id number] 23:54:00 Test Item Value Reference Range Comments AMNISURE (ROM) TEST (test code=AMNI) RUPTURED NON-RUPTURE : *Comments to L[place] Blindstitch: ALVA Mccoy QC OK? YES
[2019-11-02] MEDS ORDERED: IBUPROFEN 200 MG TAB PO ONE (01:11)
[2019-11-02] MEDS ORDERED: HYDROCODONE/APAP 7.5/325 MG TAB ONE (01:11)
[2019-11-02] MEDS ORDERED: CEFTRIAXONE 1000 MG/VIAL ONE (01:20)
[2019-11-02] MEDS ORDERED: WATER FOR INJ,STERILE 10 ML ONE (01:20)
[2019-11-02] MEDS ORDERED: CLINDAMYCIN HCL 150 MG CAP ONE (01:20)
--- NOTE | 2019-11-02 01:59 | ER ---
Nurse's Notes [facility] Name: Raeann Mesa Age: 23 yrs Sex: Female : 1995 Arrival Date: 11/02/2019 Time: 00:39 Bed 25 Private MD: Diagnosis: infective mastitis Presentation: 11/02 00:43 Presenting complaint: Patient states: fever since this morning which resolved after aa1 taking Motrin but then came back after the medication wore off. States she has not taken any medication since fever came back. Pt reports she believes she has a fever bc she is breast feeding and has a clogged duct. Transition of care: patient was not received from another setting of care. Onset of symptoms was November 01, 2019. Risk Assessment: Do you want to hurt yourself or someone else? Patient reports no desire to harm self or others. Initial Sepsis Screen: Does the patient meet any 2 criteria? HR > 90 bpm. Does the patient have a suspected source of infection? No. Patient's initial sepsis screen is negative. Care prior to arrival: None. 00:43 Method Of Arrival: Ambulatory aa1 00:43 Acuity: SHANNON 4 aa1 Triage Assessment: 00:45 General: Appears in no apparent distress. comfortable, Behavior is calm, cooperative, aa1 appropriate for age. Pain: Complains of pain in left breast. TRACK MAN: 00:45 LMP N/A - aa1 Historical: - Allergies: 00:45 PENICILLINS; aa1 - Home Meds: 00:45 None [Active]; aa1 - PMHx: 00:45 None; aa1 - PSHx: 00:45 ; aa1 - Immunization history:: Flu vaccine is not up to date. - Social history:: Smoking status: Patient/guardian denies using tobacco. - Ebola Screening: : No symptoms or risks identified at this time. Screenin:10 Abuse screen: Denies threats or abuse. Denies injuries from another. Nutritional aj1 screening: No deficits noted. Tuberculosis screening: No symptoms or risk factors identified. Fall Risk None identified. Assessment: 01:10 General: Appears in no apparent distress. uncomfortable, Behavior is calm, cooperative, aj1 appropriate for age. Pain: Complains of pain in left breast Pain does not radiate. Neuro: Level of Consciousness is awake, alert, obeys commands. Cardiovascular: Patient's skin is warm and dry. Respiratory: Airway is patent Respiratory effort is even, unlabored, Respiratory pattern is regular, symmetrical. GI: No signs and/or symptoms were reported involving the gastrointestinal system. : No signs and/or symptoms were reported regarding the genitourinary system. EENT: No signs and/or symptoms were reported regarding the EENT system. Derm: Skin is pink, warm \T\ dry. normal. Musculoskeletal: No signs and/or symptoms reported regarding the musculoskeletal system. Circulation, motion, and sensation intact. Vital Signs: 00:45 BP 112 / 72; Pulse 112; Resp 16; Temp 100.4(O); Pulse Ox 100% on R/A; Weight 82.1 kg aa1 (R); Height 5 ft. 6 in. (167.64 cm); Pain 5/10; 00:45 Body Mass Index 29.21 (82.10 kg, 167.64 cm) aa1 ED Course: 00:39 Patient arrived in ED. as 00:45 Triage completed. aa1 00:45 Arm band placed on right wrist. Patient placed in an exam room, on a stretcher. aa1 00:51 Tory Hernandez F[facility]-C [facility]. snw 00:51 Miller Estrada MD is Attending Physician. snw 01:07 Anat Vang, RN is Primary Nurse. aj1 01:10 Patient has correct armband on for positive identification. Bed in low position. Call aj1 light in reach. 01:10 No provider procedures requiring assistance completed. Patient did not have IV access aj1 during this emergency room visit. Administered Medications: 01:17 CANCELLED (not available): ERYTHromycin 500 mg PO once snw 01:30 Drug: Clindamycin 300 mg Route: PO; :56 Follow up: Response: No adverse reaction : Drug: Enon (7.5 mg-325 mg) 1 tabs {Note: RASS score 0 patient is alert.} Route: PO; 56 Follow up: Response: No adverse reaction; Pain is decreased; RASS: Alert and Calm (0) : Drug: Motrin 600 mg Route: PO; 56 Follow up: Response: No adverse reaction aj1 01:31 Drug: Rocephin (cefTRIAXone) 1 grams Route: IM; Site: left gluteus; aj1 01:56 Follow up: Response: No adverse reaction aj1 Outcome: 01:03 Discharge ordered by . naga 01:58 Discharged to home ambulatory. aj1 01:58 Condition: good 01:58 Discharge instructions given to patient, Instructed on discharge instructions, follow up and referral plans. medication usage, Demonstrated understanding of instructions, follow-up care, medications, Prescriptions given X 2. 01:59 Patient left the ED. aj1 Signatures: Anat Vang, RN RN aj1 Heidy Castellanos RN RN aa1 Tory Hernandez, COREMAKER BENCH-C COR[facility]ER BENCH-[facility] [place] as
--- NOTE | 2019-11-02 02:00 | EDPHYS ---
Physician Documentation [facility] Name: Raeann Mesa Age: 23 yrs Sex: Female : 1995 Arrival Date: 11/02/2019 Time: 00:39 Bed 25 Private MD: ED Physician Miller Estrada HPI: 11/02 01:08 This 23 yrs old Female presents to ER via Ambulatory with complaints of Fever. snw 01:08 The patient reports fever, that was measured at 101 degrees Fahrenheit. Onset: The snw symptoms/episode began/occurred suddenly, today. Associated signs and symptoms: Pertinent positives: decreased appetite, swelling. Severity of symptoms: At their worst the symptoms were moderate. The patient has not experienced similar symptoms in the past. It is unknown whether or not the patient has recently seen a physician. baby is in NICU, born at 27wks, Mom pumps breastmilk [id number]. 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 - Social history:: Smoking status: Patient/guardian denies using tobacco. - Ebola Screening: : No symptoms or risks identified at this time. ROS: 01:07 Eyes: Negative for injury, pain, redness, and discharge, ENT: Negative for injury, snw pain, and discharge, Neck: Negative for injury, pain, and swelling, Cardiovascular: Negative for chest pain, palpitations, and edema, Respiratory: Negative for shortness of breath, cough, wheezing, and pleuritic chest pain, Abdomen/GI: Negative for abdominal pain, nausea, vomiting, diarrhea, and constipation, Back: Negative for injury and pain, : Negative for injury, bleeding, discharge, and swelling, MS/Extremity: Negative for injury and deformity, Neuro: Negative for headache, weakness, numbness, tingling, and seizure. 01:07 Constitutional: Positive for fever. 01:07 Skin: Positive for cellulitis, of the left breast. Exam: 01:06 Head/Face: Normocephalic, atraumatic. Eyes: Pupils equal round and reactive to light, snw extra-ocular motions intact. Lids and lashes normal. Conjunctiva and sclera are non-icteric and not injected. Cornea within normal limits. Periorbital areas with no swelling, redness, or edema. ENT: Nares patent. No nasal discharge, no septal abnormalities noted. Tympanic membranes are normal and external auditory canals are clear. Oropharynx with no redness, swelling, or masses, exudates, or evidence of obstruction, uvula midline. Mucous membranes moist. Neck: Trachea midline, no thyromegaly or masses palpated, and no cervical lymphadenopathy. Supple, full range of motion without nuchal rigidity, or vertebral point tenderness. No Meningismus. Respiratory: Lungs have equal breath sounds bilaterally, clear to auscultation and percussion. No rales, rhonchi or wheezes noted. No increased work of breathing, no retractions or nasal flaring. Abdomen/GI: Soft, non-tender, with normal bowel sounds. No distension or tympany. No guarding or rebound. No evidence of tenderness throughout. Back: No spinal tenderness. No costovertebral tenderness. Full range of motion. Skin: Warm, dry with normal turgor. Normal color with no rashes, no lesions, and no evidence of cellulitis. MS/ Extremity: Pulses equal, no cyanosis. Neurovascular intact. Full, normal range of motion. Neuro: Awake and alert, GCS 15, oriented to person, place, time, and situation. Cranial nerves II-XII grossly intact. Motor strength 5/5 in all extremities. Sensory grossly intact. Cerebellar exam normal. Normal gait. Psych: Awake, alert, with orientation to person, place and time. Behavior, mood, and affect are within normal limits. 01:06 Constitutional: The patient appears alert, awake, febrile, uncomfortable. 01:06 Chest/axilla: Inspection: cellulitis, of the left lateral anterior chest Breasts: cellulitis, that is moderate, of the left breast, swelling, tenderness. 01:06 Cardiovascular: Rate: tachycardic, Rhythm: regular, Pulses: no pulse deficits are appreciated. Vital Signs: 00:45 BP 112 / 72; Pulse 112; Resp 16; Temp 100.4(O); Pulse Ox 100% on R/A; Weight 82.1 kg aa1 (R); Height 5 ft. 6 in. (167.64 cm); Pain 5/10; 00:45 Body Mass Index 29.21 (82.10 kg, 167.64 cm) aa1 MDM: 00:[address] [facility] 01:05 Data reviewed: vital signs, nurses notes. Data interpreted: Pulse oximetry: on room air snw is 100 %. Interpretation: normal. Counseling: I had a detailed discussion with the patient and/or guardian regarding: the historical points, exam findings, and any diagnostic results supporting the discharge/admit diagnosis, the need for outpatient follow up, for definitive care, to return to the emergency department if symptoms worsen or persist or if there are any questions or concerns that arise at home. Special discussion: Based on the history and exam findings, there is no indication for further emergent testing or inpatient evaluation. I discussed with the patient/guardian the need to see the OB Gyne specialist for further evaluation of the symptoms. I discussed with the patient/guardian the need to see the primary care provider for further evaluation of the symptoms. Administered Medications: 01:17 CANCELLED (not available): ERYTHromycin 500 mg PO once snw 01:30 Drug: Clindamycin 300 mg Route: PO; aj11 28:56 Follow up: Response: No adverse reaction aj11 28:31 Drug: [place] (7.5 mg-325 mg) 1 tabs {Note: RASS score 0 patient is alert.} Route: PO; aj1 :56 Follow up: Response: No adverse reaction; Pain is decreased; RASS: Alert and Calm (0) aj1 :31 Drug: Motrin 600 mg Route: PO; aj11 28:56 Follow up: Response: No adverse reaction aj11 28:31 Drug: Rocephin (cefTRIAXone) 1 grams Route: IM; Site: left gluteus; aj11 28:56 Follow up: Response: No adverse reaction aj1 Disposition: 07:41 Co-signature as Attending Physician, Miller Estrada MD I agree with the assessment and [facility] plan of care. Disposition: 11/02/19 01:03 Discharged to Home. Impression: infective mastitis. - Condition is Stable. - Discharge Instructions: Mastitis, Rehydration, Adult, Heat Therapy. - Prescriptions for Erythromycin 500 mg Oral Tablet - take 1 tablet by ORAL route every 8 hours for 10 days; 30 tablet. Ultram 50 mg Oral Tablet - take 1 tablet by ORAL route every 6 hours As needed; 12 tablet. - Medication Reconciliation Form, Thank You Letter, Antibiotic Education, Prescription Opioid Use form. - Follow up: Private Physician; When: 1 - 2 days; Reason: Recheck today's complaints, Continuance of care, Re-evaluation by your physician. Follow up: Emergency Department; When: As needed; Reason: Worsening of condition. Signatures: Anat Vang RN RN aj1 Heidy Castellanos RN RN aa1 Miller Estrada MD MD cha Therrien, Shelly, HEATER TENDER-C HEATER TENDER-Csnw Corrections: (The following items were deleted from the chart) 01:17 01:02 ERYTHromycin 500 mg PO once ordered. snw naga 01:59 01:03 11/02/2019 01:03 Discharged to Home. Impression: infective mastitis. aj1 Condition is Stable. Forms are Medication Reconciliation Form, Thank You Letter, Antibiotic Education, Prescription Opioid Use. Follow up: Private Physician; When: 1 - 2 days; Reason: Recheck today's complaints, Continuance of care, Re-evaluation by your physician. Follow up: Emergency Department; When: As needed; Reason: Worsening of condition. snw
[2019-11-02 04:08] VITALS: BP 112/72; TEMP 100.4; O2SAT 100
== END 2019-11-02 01:59 | disposition home or self-care (01) ==
LOC: ER 00:32
DX: P39.0 Neonatal infective mastitis (principal); Z88.0 Allergy status to penicillin
CPT/HCPCS: 96372; 99283